=== PATIENT | female | born 1950 | race Caucasian/White ===

== ENCOUNTER → 2016-10-30 | Outpatient (CLI) | payer MEDICARE, OTHER ==
--- NOTE | 2016-10-30 15:56 | BD ---
EXAMINATION TYPE: MG DEXA axial skeleton. DATE OF EXAM: 10/30/2016 1:03 PM COMPARISON: NONE CLINICAL HISTORY: M85.80 OSTEOPENIA Height: 65 Weight: 216 FRAX RISK QUESTIONS: Alcohol (3 or more units per day): NO Family History (Parent hip fracture): NO Glucocorticoids (More than 3mos): NO (Ex: prednisone, prednisolone, methylprednisolone, dexamethasone, and hydrocortisone). History of Fracture in Adulthood: NO, NOT OVER 50 YRS OLD Secondary Osteoporosis: NO 1. Type 1 Diabetes: NO 2. Hyperthyroidism: NO 3. Menopause before 45: NO 4. Malnutrition: NO 5. Chronic liver disease: NO Rheumatoid Arthritis: NO Current Tobacco Use: NO RISK FACTORS HISTORY OF: Other Fractures since Age 48: RT ANKLE UNDER AGE 50 When: < 50 YRS Family History of Osteoporosis: NO Smoke tobacco: NO Drink Alcohol: SOCIAL Active: YES Diet low in dairy products/other sources of calcium: NO Postmenopausal woman: YES AT AGE 52 Lost more than 2 inches in height since high school: NO Adrenal Insufficiency: NO MEDICATIONS: Thyroid Medications: YES Which medication: SYNTHROID How Lon-5 YRS Additional Medications: BP MEDS, STATINS FOR CHOLESTEROL, CALCIUM AND VIT D Additional History: NONE TO NOTE EXAM MEASUREMENTS: Bone mineral densitometry was performed using the [employer] System. Bone mineral density as measured about the Lumbar spine is: ----- L1-L4(G/cm2): 1.083 T Score Values are as follows: ----- L1: -1.3 ----- L2: -1.1 ----- L3: -1.0 ----- L4: -0.2 ----- L1-L4: -0.8 Bone mineral density FIRST BONE DENSITY WITH [facility].....BASELINE Bone mineral density about the R hip (g/cm2): 0.998 Bone mineral density about the L hip (g/cm2): 1.029 T Score values are as follows: -----R Neck: -1.0 -----L Neck: -0.9 -----R Total: -0.1 -----L Total: 0.2 Bone mineral density NEW TO [facility].....BASELINE FRAX %'S: 7.8% CHANCE FOR A MAJOR OSTEOPOROTIC FX AND 0.6% CHANCE FOR A HIP FX.....PROBABILITY OF F X IN 10 YRS TIME IMPRESSION: Osteopenia (T Score between -2.5 and -1 as noted by T score values There is slightly increased risk of fracture and the patient may be considered for treatment. Re-Screen 2-5 years. NOTE: T-SCORE=SD OF THE YOUNG ADULT MEAN.
--- NOTE | 2016-11-03 09:41 | MM ---
Reason for exam: screening (asymptomatic). Last mammogram was performed 1 year and 1 month ago. History: Patient is postmenopausal. Physical Findings: A clinical breast exam by your physician is recommended on an annual basis and results should be correlated with mammographic findings. MG 3D Screening Mammo W/Cad Bilateral CC and MLO view(s) were taken. Prior study comparison: October 15, 2015, bilateral MG 3d screening mammo w/cad. There are scattered fibroglandular densities. No significant changes when compared with prior studies. ASSESSMENT: Benign, BI-RAD 2 RECOMMENDATION: Routine screening mammogram of both breasts in 1 year.
== END | disposition home or self-care (01) ==
LOC: RADMAMWWP 12:06
PROVIDERS: ATTEND Family Medicine
DX: Z12.31 Encounter for screening mammogram for malignant neoplasm of breast (principal); M85.80 Other specified disorders of bone density and structure, unspecified site; E55.9 Vitamin D deficiency, unspecified
CPT/HCPCS: 77080; 77063; G0202

== ENCOUNTER → 2017-03-25 | Outpatient (CLI) | payer MEDICARE, OTHER ==
--- NOTE | 2017-03-25 13:58 | US ---
EXAMINATION TYPE: US thyroid st tissue head/neck DATE OF EXAM: 03/25/2017 COMPARISON: NONE CLINICAL HISTORY: R59.0 LOCALIZED ENLARGED LYMPH NODES. palpable on the right side of neck x 1 year, on thyroid meds for years GLAND SIZE: Right Lobe: 2.7 x 1.1 x 1.4 cm Overall Parenchyma: heterogenous Left Lobe: 3.1 x 1.2 x 1.3 cm Overall Parenchyma: heterogeneous Isthmus Thickness: 0.7 cm NODULES RIGHT: # of nodules measured on right: 0 LEFT: # of nodules measured on left: 0 ISTHMUS: # of nodules measured in the isthmus: 0 Bilateral neck scanned; 1.4cm lymph node seen at palpable site Diffusely heterogenous glands bilaterally IMPRESSION: Mildly prominent lymph node at the site of clinical concern.
== END | disposition home or self-care (01) ==
LOC: RADUSWWP 13:02
PROVIDERS: ATTEND Dermatology
DX: R59.0 Localized enlarged lymph nodes (principal)
CPT/HCPCS: 76536

== ENCOUNTER → 2017-10-20 | Outpatient (CLI) | payer MEDICARE, OTHER ==
[2017-10-20 14:16] LABS: Blood Urea Nitrogen 16 mg/dL (7-17)
--- NOTE | 2017-10-20 14:49 | CT ---
EXAMINATION TYPE: CT soft tissue neck w con DATE OF EXAM: 10/20/2017 HISTORY: Rt neck mass COMPARISON: CT neck April 16, 2017 CT DLP: 591 mGycm. Automated Exposure Control for Dose Reduction was Utilized. TECHNIQUE: CT scan of the neck is performed with IV Contrast, patient injected with 100 mL of Isovue 300, axial images are obtained, coronal and sagittal reformatted images are reviewed. FINDINGS: A metallic BB is placed at level of palpable abnormality right neck at level of hyoid bone axial image 34. At this level there is prominent round lesion measuring 9 x 8 mm felt to reflect prom inent but subcentimeter lymph node, this is unchanged in size and appearance from prior study. No new suspicious solid or cystic mass or fluid collection is identified at this level. Airway: Emphysematous change in visualized lung apices is redemonstrated. Parotid/submandibular glands: No gross abnormality seen. Carotid/Vascular Structures: A dominant left vertebral artery is incidentally redemonstrated. There i s persistent mild plaque at bilateral carotid bulbs without significant stenosis identified. Osseous Structures: No suspicious finding identified. Other: No new greater than 1 cm neck adenopathy is seen. IMPRESSION: Stable 9 mm right submandibular round lesion presumed prominent lymph node. No new suspic ious mass or adenopathy is present.
== END | disposition home or self-care (01) ==
LOC: RADCTMAIN 13:30
PROVIDERS: ATTEND Otolaryngology
DX: R22.1 Localized swelling, mass and lump, neck (principal); I10 Essential (primary) hypertension
CPT/HCPCS: 82565; 84520; 70491; 36415; Q9967

== ENCOUNTER → 2017-11-16 | Outpatient (CLI) | payer MEDICARE, OTHER ==
--- NOTE | 2017-11-17 09:45 | MM ---
Reason for exam: screening (asymptomatic). Last mammogram was performed 1 year and 1 month ago. History: Patient is postmenopausal. Physical Findings: A clinical breast exam by your physician is recommended on an annual basis and results should be correlated with mammographic findings. MG 3D Screening Mammo W/Cad Bilateral CC and MLO view(s) were taken. Prior study comparison: October 30, 2016, bilateral MG 3d screening mammo w/cad. October 15, 2015, bilateral MG 3d screening mammo w/cad. The breast tissue is heterogeneously dense. This may lower the sensitivity of mammography. There is no discrete abnormality. No significant changes when compared with prior studies. ASSESSMENT: Benign, BI-RAD 2 RECOMMENDATION: Routine screening mammogram of both breasts in 1 year.
== END | disposition home or self-care (01) ==
LOC: RADMAMWWP 09:39
PROVIDERS: ATTEND Family Medicine
DX: Z12.31 Encounter for screening mammogram for malignant neoplasm of breast (principal)
CPT/HCPCS: 77063; 77067

== ENCOUNTER 2019-01-05 11:44 | Day surgery (SDC) | payer MEDICARE, OTHER ==
[2019-01-05 12:57] VITALS: BMI 34.4
[2019-01-05 13:03] VITALS: TEMP 98.2
[2019-01-05] MEDS ORDERED: LACTATED RINGERS 1,000 ML IV ONE (13:05)
[2019-01-05] MEDS ORDERED: LIDOCAINE 1% 20 ML VIAL (10MG/ML) FOR IV START INTRADERMA ONE (13:06)
[2019-01-05] MEDS ORDERED: LACTATED RINGERS 1,000 ML IV SCH (13:09)
[2019-01-05] MEDS ORDERED: PROPOFOL 10 MG/ML 20 ML VIAL IV ONE (14:02)
[2019-01-05] MEDS ORDERED: LIDOCAINE 1% INJ 10MG/ML (20 ML MDV) ONE (14:02)
[2019-01-05 14:42] VITALS: PULSE 72; RESP 18
--- NOTE | 2019-01-05 14:42 | P.PCN ---
Date of Procedure: 01/05/19 Description of Procedure: BRIEF HISTORY: Patient is a 68-year-old pleasant female scheduled for an elective colonoscopy as a part of screening for malignant neoplasm colon. She does report prior history of colonoscopy approximately 16 years ago with findings of polyps. Denies any change in bowel habits, blood per rectum, constipation, diarrhea or melena. No family history of colon cancer. PROCEDURE PERFORMED: Colonoscopy. PREOPERATIVE DIAGNOSIS: Personal history of colon polyps, screening for malignant neoplasm of the colon, last colonoscopy 16 years ago. ESTIMATED BLOOD LOSS: Minimal. IV sedation per Anesthesia. PROCEDURE: After informed consent was obtained, the patient, was brought into the endoscopy unit. IV sedation was administered by Anesthesia under continuous monitoring. Digital rectal examination was normal. Initially the Olympus CF-190 flexible video colonoscope was then inserted in the rectum, gradually advanced into the cecum without any difficulty. Careful examination was performed as the scope was gradually being withdrawn. Ileocecal valve and the appendiceal orifice were visualized and appeared normal. Prep was excellent. Mucosa of the cecum, ascending colon, transverse colon, descending colon, sigmoid colon, and rectum appeared normal. A few small mouth diverticula noted in the sigmoid. Mild internal hemorrhoids. Retroflexion was performed in the rectum and no lesions were seen. The patient tolerated the procedure well. IMPRESSION: Normal-appearing colon from rectum to cecum. Mild diverticulosis. Internal hemorrhoids. RECOMMENDATIONS: Findings of this examination were discussed with the patient and her . Okay to resume high-fiber diet. Okay to resume medications. Repeat colonoscopy in 5 years for history of colon polyps or sooner if signs or symptoms which weren't further evaluation develope.
[2019-01-05 14:56] VITALS: BP 140/62
== END 2019-01-05 15:15 | disposition home or self-care (01) ==
LOC: ORWHC2ENDO 11:44
PROVIDERS: ATTEND Internal Medicine
DX: Z12.11 Encounter for screening for malignant neoplasm of colon (principal); K57.30 Diverticulosis of large intestine without perforation or abscess without bleeding; K64.8 Other hemorrhoids; Z86.010 Personal history of colon polyps; I10 Essential (primary) hypertension; E78.5 Hyperlipidemia, unspecified; E07.9 Disorder of thyroid, unspecified; Z79.890 Hormone replacement therapy; Z79.899 Other long term (current) drug therapy; Z79.3 Long term (current) use of hormonal contraceptives
CPT/HCPCS: G0105; J2001; J2704

== ENCOUNTER → 2020-02-20 | Outpatient (CLI) | payer MEDICARE, OTHER ==
--- NOTE | 2020-02-20 15:40 | BD ---
EXAMINATION TYPE: Axial Bone Density DATE OF EXAM: 02/20/2020 COMPARISON: NONE CLINICAL HISTORY: Height: 65 Weight: 206.8 FRAX RISK QUESTIONS: Alcohol (3 or more units per day): no Family History (Parent hip fracture): no Glucocorticoids (More than 3mos): no (Ex: prednisone, prednisolone, methylprednisolone, dexamethasone, and hydrocortisone). History of Fracture in Adulthood: YES Secondary Osteoporosis: 1. Type 1 Diabetes: no 2. Hyperthyroidism: no 3. Menopause before 45: no 4. Malnutrition: no 5. Chronic liver disease: no Rheumatoid Arthritis: no Current Tobacco Use: no RISK FACTORS HISTORY OF: Family History of Osteoporosis: no Active: yes Diet low in dairy products/other sources of calcium: no Postmenopausal woman: age 52 Lost more than 2 inches in height since high school: no MEDICATIONS: tumeric, blood pressure meds, cholesterol meds, calcium, vit d EXAM MEASUREMENTS: Bone mineral densitometry was performed using the [employer] System. Bone mineral density as measured about the Lumbar spine is: ----- L1-L4(G/cm2): 1.125 T Score Values are as follows: ----- L2: -1.0 ----- L3: -0.7 ----- L4: 0.1 ----- L1-L4: -0.5 Bone mineral density has: increased 2.7 % since study of: 10.30.2016 Bone mineral density about the R hip (g/cm2): 0.886 Bone mineral density about the L hip (g/cm2): 0.927 T Score values are as follows: -----R Neck: -1.1 -----L Neck: -0.8 -----R Total: -0.3 -----L Total: 0.3 Bone mineral density has: decreased -0.7 % since study of: 10.30.2016 IMPRESSION: Osteopenia (T Score between -2.5 and -1) remains present femoral neck level right hip. There remains slightly increased risk of fracture and the patient may be considered for treatment. Re-Screen 2-5 years. NOTE: T-SCORE=SD OF THE YOUNG ADULT MEAN.
--- NOTE | 2020-02-22 09:37 | MM ---
Reason for exam: screening (asymptomatic). Last mammogram was performed 2 years and 3 months ago. History: Patient is postmenopausal. Physical Findings: A clinical breast exam by your physician is recommended on an annual basis and results should be correlated with mammographic findings. MG 3D Screening Mammo W/Cad Bilateral CC and MLO view(s) were taken. Prior study comparison: November 16, 2017, bilateral MG 3d screening mammo w/cad. October 30, 2016, bilateral MG 3d screening mammo w/cad. The breast tissue is heterogeneously dense. This may lower the sensitivity of mammography. Small central left CC nodularity unchanged back to 2017. 5mm circumscribed nodularity lateral right CC view is more defined. Not seen on MLO. 6 month follow up. ASSESSMENT: Probably benign, BI-RAD 3 RECOMMENDATION: Follow-up diagnostic mammogram of the right breast in 6 months.
== END | disposition home or self-care (01) ==
LOC: RADMAMWWP 14:44
PROVIDERS: ATTEND Family Medicine
DX: Z12.31 Encounter for screening mammogram for malignant neoplasm of breast (principal); M85.851 Other specified disorders of bone density and structure, right thigh; Z78.0 Asymptomatic menopausal state
CPT/HCPCS: 77063; 77067; 77080

== ENCOUNTER → 2021-03-10 | Outpatient (CLI) | payer MEDICARE, OTHER ==
--- NOTE | 2021-03-10 12:21 | MM ---
Reason for exam: additional evaluation requested from prior study. Last mammogram was performed 1 year and 1 month ago. History: Patient is postmenopausal and history of other cancer. Physical Findings: Nurse did not find any significant physical abnormalities on exam. MG 3D Diag Mammo W/Cad [facility] Bilateral CC and MLO view(s) were taken. Prior study comparison: February 20, 2020, bilateral MG 3d screening mammo w/cad. November 16, 2017, bilateral MG 3d screening mammo w/cad. October 30, 2016, bilateral MG 3d screening mammo w/cad. The breast tissue is heterogeneously dense. This may lower the sensitivity of mammography. Finding: There is a typically benign 4 x 6 mm equal density (isodense), circumscribed oval mass located 6 cm from the nipple in the outer quadrant, middle position of the right breast. New finding since November 16, 2017. These results were verbally communicated with the patient and result sheet given to the patient on 03/10/21. ASSESSMENT: Incomplete: need additional imaging evaluation, BI-RAD 0 RECOMMENDATION: Ultrasound of the right breast. (outer quadrant)
--- NOTE | 2021-03-10 12:22 | USB ---
Reason for exam: additional evaluation requested from abnormal screening. History: Patient is postmenopausal and history of other cancer. US Breast Limited RT Right limited breast ultrasound including focal area of concern, retroareolar and axilla demonstrates a 0.4 x 0.4 x 0.3cm cystic lesion at 7 o'clock. These results were verbally communicated with the patient and result sheet given to the patient on 03/10/21. ASSESSMENT: Probably benign, BI-RAD 3 RECOMMENDATION: Follow-up diagnostic mammogram and ultrasound of the right breast in 6 months.
== END | disposition home or self-care (01) ==
LOC: RADMAMWWP 03-07 15:31
PROVIDERS: ATTEND Family Medicine
DX: N63.41 Unspecified lump in right breast, subareolar (principal); N64.89 Other specified disorders of breast
CPT/HCPCS: 77066; 76642; G0279; 77062

== ENCOUNTER → 2021-09-08 | Outpatient (CLI) | payer MEDICARE, OTHER ==
--- NOTE | 2021-09-09 08:14 | MM ---
Reason for exam: follow-up at short interval from prior study. Last mammogram was performed 6 months ago. History: Patient is postmenopausal and has history of other cancer at age 63. Physical Findings: A clinical breast exam by your physician is recommended on an annual basis and results should be correlated with mammographic findings. MG 3D Diag Mammo W/Cad RT CC and MLO view(s) were taken of the right breast. Prior study comparison: March 10, 2021, bilateral MG 3d diag mammo w/cad [facility]. February 20, 2020, bilateral MG 3d screening mammo w/cad. November 16, 2017, bilateral MG 3d screening mammo w/cad. The breast tissue is heterogeneously dense. This may lower the sensitivity of mammography. 8-9 o'clock low density nodularity middle depth is unchanged for 6 months. ASSESSMENT: Incomplete: need additional imaging evaluation, BI-RAD 0 RECOMMENDATION: Ultrasound of the right breast.
--- NOTE | 2021-09-09 08:16 | USB ---
Reason for exam: follow-up at short interval from prior study. History: Patient is postmenopausal and has history of other cancer at age 63. US Breast Limited RT Right limited breast ultrasound including focal area of concern, retroareolar and axilla demonstrates a 0.8 x 0.3 x 0.5cm benign cystic cluster at 8 o'clock 5cm from nipple and a 0.5 x 0.5 x 0.6cm benign cystic lesion at 8 o'clock with debris at 8 o'clock 6cm from nipple. Scanned 7-12 o'clock. ASSESSMENT: Probably benign, BI-RAD 3 RECOMMENDATION: Routine screening mammogram of both breasts in 6 months.
== END | disposition home or self-care (01) ==
LOC: RADMAMWWP 13:05
PROVIDERS: ATTEND Family Medicine
DX: R92.8 Other abnormal and inconclusive findings on diagnostic imaging of breast (principal); Z78.0 Asymptomatic menopausal state
CPT/HCPCS: 77065; 76642; G0279; 77061

== ENCOUNTER → 2022-03-10 | Outpatient (CLI) | payer MEDICARE, OTHER ==
--- NOTE | 2022-03-10 13:35 | MM ---
Reason for Exam: Additional evaluation requested from prior study. Last screening mammogram was performed 12 month(s) ago. Patient History: Menarche at age 10. First Full-Term at age 20. Postmenopausal. Other cancer, age 63. Risk Values: Angeles 5 year model risk: 1.6%. NCI Lifetime model risk: 3.9%. Prior Study Comparison: 10/30/2016 Bilateral Screening Mammogram, [facility]. 11/16/2017 Bilateral Screening Mammogram, [facility]. 02/20/2020 Bilateral Screening Mammogram, [facility]. 03/10/2021 Bilateral Diagnostic Mammogram, [facility]. 09/08/2021 Right Diagnostic Mammogram, [facility]. Tissue Density: The breast tissue is heterogeneously dense. This may lower the sensitivity of mammography. Findings: Analyzed By CAD. No evidence for mass or suspicious cluster of calcifications. Overall Assessment: Benign, BI-RAD 2 Management: Screening Mammogram of both breasts in 1 year. A clinical breast exam by your physician is recommended on an annual basis and results should be correlated with mammographic findings. This exam should not preclude additional follow-up of suspicious palpable abnormalities. Results were given to the patient verbally at the time of exam. Electronically signed and approved by: Serafin Johnson M.D. Radiologis
== END | disposition home or self-care (01) ==
LOC: RADMAMWWP 12:37
PROVIDERS: ATTEND Family Medicine
DX: R92.8 Other abnormal and inconclusive findings on diagnostic imaging of breast (principal); Z78.0 Asymptomatic menopausal state
CPT/HCPCS: 77066; G0279; 77062

== ENCOUNTER → 2024-03-29 | Outpatient (CLI) | payer MEDICARE, OTHER ==
--- NOTE | 2024-03-30 08:06 | MM ---
Reason for Exam: Screening (asymptomatic). Last mammogram was performed 1 year(s) and 1 month(s) ago. Patient History: Menarche at age 10. First Full-Term at age 20. Postmenopausal. Other cancer, age 63. Mother had ovarian cancer at or over age 50. Sister had ovarian cancer, age 65. Risk Values: Angeles 5 year model risk: 1.6%. NCI Lifetime model risk: 3.4%. Prior Study Comparison: 10/15/2015 Bilateral Screening Mammogram, [facility]. 10/30/2016 Bilateral Screening Mammogram, [facility]. 11/16/2017 Bilateral Screening Mammogram, [facility]. 02/20/2020 Bilateral Screening Mammogram, [facility]. 03/10/2021 Bilateral Diagnostic Mammogram, [facility]. 09/08/2021 Right Diagnostic Mammogram, [facility]. 03/10/2022 Bilateral MG 3D diag mammo w/cad [facility], [facility]. 03/11/2023 Bilateral MG 3D screening mammo w/cad, [facility]. Tissue Density: There are scattered areas of fibroglandular density. Findings: Analyzed By CAD. Right breast: There is no suspicious group of microcalcifications or new suspicious mass. Left breast: There is no suspicious group of microcalcifications or new suspicious mass. Overall Assessment: Negative, BI-RAD 1 Management: Screening Mammogram of both breasts in [address] [facility] will attempt to contact patient to return for supplemental views and ultrasound if indicated. Patient should continue monthly self-breast exams. A clinical breast exam by your physician is recommended on an annual basis. This exam should not preclude additional follow-up of suspicious palpable abnormalities. Note on Angeles scores and lifetime risk: 1. A Angeles score greater than 3% is considered moderate risk. If this is the case, consider specialist referral to assess eligibility for a risk reducing agent. 2. If overall lifetime risk for the development of breast cancer is 20% or higher, the patient may qualify for future screening with alternating mammogram and breast MRI. [facility], , 03/30/2024 8:03 AM. Electronically signed and approved by: Sage Vigil DO
== END | disposition home or self-care (01) ==
LOC: RADMAMWWP 09:49
PROVIDERS: ATTEND Family Medicine
CPT/HCPCS: 77063; 77067